=== PATIENT | female | born 1995 | race Caucasian/White ===

== ENCOUNTER 2016-12-22 21:34 | Emergency (ER) | payer OTHER ==
--- NOTE | 2016-12-22 22:39 | Diagnostic Imaging Report ---
DERICK SALAS [facility] [address] [facility] [address] [id number] Report Submission Date: December 22, 2016 10:34:05 PM CDT Patient Study Name: KANU BEDOYA Date: December 22, 2016 10:14:13 PM CDT Modality Type: CR Gender: F Description: LOWER EXTREMITY : 89 Institution: [facility] Physician: DERICK SALAS Left ankle-three views CLINICAL HISTORY: Pain. FINDINGS: Examination left ankle in AP, lateral and oblique views fails to demonstrate evidence of fracture. The ankle mortise is anatomic. There is no lytic or blastic lesion. IMPRESSION: Negative study. Electronically signed on December 22, 2016 10:34:05 PM CDT by: Lawrence VÁSQUEZ
--- NOTE | 2016-12-22 22:39 | Diagnostic Imaging Report ---
DERICK SALAS [facility] [address] [facility].[address] [address] Report Submission Date: December 22, 2016 10:33:20 PM CDT Patient Study Name: KANU BEDOYA Date: December 22, 2016 10:10:32 PM CDT Modality Type: CR Gender: F Description: LOWER EXTREMITY : 89 Institution: [facility] Physician: DERICK SALAS Left foot -three views CLINICAL HISTORY: Pain. FINDINGS: Examination left foot in plantar, lateral and oblique views fails to demonstrate evidence of fracture, dislocation or other bone or joint pathology. Electronically signed on December 22, 2016 10:33:20 PM CDT by: Lawrence VÁSQUEZ
--- NOTE | 2016-12-22 22:55 | ED Physician Documentation ---
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 Onset: days ago (2) Where: home Severity: moderate r: other (riding horse) Associated Symptoms:: swelling, other (pain) Modifying Factors:: pain on movement Further Comments: no - ROS CONST: no problems CVS/RESP: none NEURO: denies: headache, head injury, dizziness GI/: denies: problems urinating, nausea, vomiting MS/SKIN/LYMPH: none - PAST HX Past History: other (migraines, anxiety) Immunizations: referred to PCP, other (anxiety) Allergies/Adverse Reactions: Allergies Allergy/AdvReac Type Severity Reaction Status Date / Time No Known Allergies Allergy Verified 12/22/16 21:58 Home Medications: Ambulatory Orders Medication Instructions Recorded FLUoxetine HCL [Prozac] 10 mg PO QD 12/22/16 SUMAtriptan SUCCINATE [Imitrex] 25 mg PO PRN PRN 12/22/16 - SOCIAL HX Smoking History: non-smoker Alcohol Use: none Drug Use: none - FAMILY HX Family History: no significant history - VITAL SIGNS Vital Signs: Vital Signs Temp Pulse Resp BP Pulse Ox 98.7 F 80 16 99 12/22/16 21:46 12/22/16 21:46 12/22/16 21:46 12/22/16 21:46 - REVIEWED ASSESSMENTS Nursing Assessment Reviewed: Yes Vitals Reviewed: Yes Progress - Results/Orders Results/Orders: ankle and foot x-ray ordered - Progress Progress: pt. given percocet 5/325 1 p.o. x 1 in er Critical Care Note - Critical Care Note Total Time (mins): 0 ED Results Lab/Radiology - Lab Results Lab Results: none taken - Radiology Radiology Impressions: x-ray left ankle and foot neg - Orders Orders: ED Orders Category Date Time Status Idris Wrap Affected Extremity 1T Care 12/22/16 22:53 Ordered ANKLE 3 VIEWS OR MORE [RAD] Stat Exams 12/22/16 Completed FOOT 3 VIEWS OR MORE [RAD] Stat Exams 12/22/16 Completed oxyCODONE HCL/ACETAMINOPHEN [Percocet 5-325 mg Tablet] Med 12/22/16 22:45 Once 1 each PO NOW ONE Ankle Injury Physical Exam - Physical Exam General Appearance: mild distress Foot: left foot: swelling (left ankle mortise) Ankle: left: other (no ligamentous laxity, no bruising, positive swelling and warmth, tenderness fibulocalcaneal lig.) Gait: normal Neuro: sensation nml, motor nml Vascular: no vascular compromise Tendons: tendon function nml Leg/Knee/Thigh: uninjured above ankle Skin: intact, warm Head/ENT: nml inspection, pharynx nml Neck/Back: nml inspection, non-tender Resp/CVS: chest non-tender, breath sounds nml, heart sounds nml, no resp. distress, lungs clear, reg. rate & rhythm Abdomen: non-tender, pelvis stable Discharge Clincal Impression: Ankle sprain Qualifiers: Encounter type: initial encounter Involved ligament of ankle: calcaneofibular ligament Laterality: left Qualified Code(s): S93.412A - Sprain of calcaneofibular ligament of left ankle, initial encounter Referrals: Galen Clinton [Primary Care Provider] - 2 Days Home Medications: Ambulatory Orders FLUoxetine HCL [Prozac] 10 mg PO QD 12/22/16 SUMAtriptan SUCCINATE [Imitrex] 25 mg PO PRN PRN 12/22/16 Comments: pt. discharged with script for percocet 5/325 #10 1 p.o. qid prn pain and instructions (idris, ice, elevate) Condition: Stable Decision to Admit: NO Decision Time: 23:00
[2016-12-22] MEDS: oxyCODONE/ACETAMINOPHEN 5/325 TABLET PO ONE (22:56)
== END 2016-12-22 23:01 | disposition home or self-care (01) ==
LOC: ED 21:34
DX: S93.412A Sprain of calcaneofibular ligament of left ankle, initial encounter (principal); W19.XXXA Unspecified fall, initial encounter; Y93.9 Activity, unspecified; Y99.9 Unspecified external cause status
CPT/HCPCS: 73610; 73630; A9270; 99283

== ENCOUNTER 2017-11-10 09:56 | Outpatient (CLI) | payer BC, OTHER ==
--- NOTE | 2017-11-10 12:24 | Diagnostic Imaging Report ---
[facility] [address] [facility] [address] Report Submission Date: Nov 10, 2017 10:26:45 AM CDT Patient Study Name: KANU BEDOYA Date: Nov 10, 2017 10:07:07 AM CDT Modality Type: DX Gender: F Description: SHOULDER : 89 Institution: [facility] Physician: MILAGRO PATRICIO Examination: Plain film right shoulder History: RT SHOULDER, PAIN IN RT SHOULDER X2 YEARS AFTER INJURY WITH HX OF LABRAL TEAR. PT STATES SHE HAS HAD THERAPY AND TREATMENTS TO HER SHOULDER, WITH PAIN RECENTLY WORSENING (Hx) Comparison exams: None provided Findings: 3 views of the right shoulder demonstrates normal cortical margins. No evidence for fracture or dislocation. No soft tissue abnormality Impression: No acute osseous process. Given patient's reported history, consider obtaining MRI shoulder to further evaluate. Electronically signed on Nov 10, 2017 10:26:45 AM CDT by: Hilario VÁSQUEZ
== END 2017-11-10 09:58 ==
LOC: RAD 09:56
PROVIDERS: ATTEND Family Medicine
DX: M25.511 Pain in right shoulder (principal); T14.90XA Injury, unspecified, initial encounter; Y99.9 Unspecified external cause status; Z87.828 Personal history of other (healed) physical injury and trauma
CPT/HCPCS: 73030